=== PATIENT | male | born 1975 | race Caucasian/White ===

== ENCOUNTER 2024-06-16 15:09 | Emergency (ER) | payer MEDICAID ==
[~2024-06-16] VITALS: Ht 175.3 cm; Wt 75.0 kg
[2024-06-16 15:18] VITALS: TEMP 98.5; O2SAT 96
[2024-06-16] MEDS: FLUORESCEIN SODIUM 1MG/STRIP BOTHEYE ONE (16:15)
[2024-06-16] MEDS: TETRACAINE 0.5% OPHTH DROPS 4ML BOTHEYE ONE (16:15)
[2024-06-16] MEDS ORDERED: TRIMO LEFTEYE (16:52)
[2024-06-16 17:39] VITALS: BP 148/92; PULSE 80; RESP 18; O2SAT 100
== END 2024-06-16 17:41 | disposition home or self-care (01) ==
LOC: ER 15:09
DX: H10.89 Other conjunctivitis (principal); G10 Huntington's disease
CPT/HCPCS: 99283